=== PATIENT | male | born 1955 | race Caucasian/White ===

== ENCOUNTER → 2021-07-15 | Outpatient (CLI) | payer MEDICARE ==
[~2021-07-15] MED LIST: IOPAMIDOL 370 MG/ML 100 ML INFUS..BTL INJ ONE
[2021-07-15 10:13] LABS: CREATININE, SERUM 0.83 mg/dL (0.72-1.25)
== END ==
LOC: NM 08:58
PROVIDERS: ATTEND Urology
DX: C61 Malignant neoplasm of prostate (principal)
CPT/HCPCS: 36415; 71046; 74177; 78306; 82565; 84520; A9503; Q9967

== ENCOUNTER 2024-09-25 13:04 | Emergency (ER) | payer MEDICARE ==
[~2024-09-25] VITALS: Ht 162.6 cm; Wt 63.5 kg
[2024-09-25 13:08] VITALS: TEMP 97.9
[2024-09-25 14:11] LABS: BASOPHILS % 1.0 % (0.0-1.0); EOSINOPHILS % 2.7 % (0.0-6.0); LYMPHOCYTES % 18.4 % (18.0-39.1); MONOCYTES % 9.1 % (4.4-11.3); NEUTROPHILS % 68.4 % (38.7-80.0); RED CELL DISTRIBUTION WIDTH 13.1 % (11.7-14.4)
[2024-09-25 14:15] LABS: INR 0.88
[2024-09-25 14:26] LABS: EST GLOMERULAR FILTRATION RATE 94.0 ML/MIN (>=60)
[2024-09-25] MEDS: Morphine 2mg Syringe 2 MG/ML SYR IV STA (14:27)
[2024-09-25] MEDS: ONDANSETRON HCL INJ 2MG/ML 2ML 2 MG/ML VIAL IV STA (14:27)
[2024-09-25] MEDS: SODIUM CHLORIDE 0.9% 1000ML 1,000 ML IV STA (14:28)
[2024-09-25] MEDS ORDERED: IOPAMIDOL 370 MG/ML 100 ML INFUS..BTL INJ ONE (14:30)
[2024-09-25 14:49] LABS: LEUKOCYTE ESTERASE ,URINE NEGATIVE (NEGATIVE); PROTEIN,URINE DIPSTICK NEGATIVE (NEGATIVE); URINE UROBILINOGEN 0.2 mg/dL (0.2 - 1)
[2024-09-25 15:00] LABS: WBC,URINE (MAN) 0-5 /HPF (0-5)
[2024-09-25] MEDS ORDERED: DICYCLOMINE HCL20 MG PO (17:59)
[2024-09-25] MEDS ORDERED: ONDANSETRON ODT4 MG PO (17:59)
[2024-09-25 18:04] VITALS: PULSE 64; RESP 12; O2SAT 100
== END 2024-09-25 18:23 | disposition home or self-care (01) ==
LOC: ER 14:00
DX: R10.11 Right upper quadrant pain (principal); K57.90 Diverticulosis of intestine, part unspecified, without perforation or abscess without bleeding; I10 Essential (primary) hypertension; E78.5 Hyperlipidemia, unspecified; Z85.46 Personal history of malignant neoplasm of prostate
CPT/HCPCS: 36415; 71045; 74177; 76705; 80053; 81001; 82550; 83690; 83735; 84484; 85025; 85610; 85730; 93005; 99284; J2270; J2405; J2470; J7030; Q9967